=== PATIENT | female | born 1945 | race Hispanic/Latino ===

== ENCOUNTER 2017-12-18 11:23 | Emergency (ER) | payer OTHER, MEDICARE ==
[~2017-12-18] VITALS: Ht 157.5 cm; Wt 68.0 kg
--- NOTE | 2017-12-18 12:10 | ED GI/GU/ABDOMINAL COMPLAINT ---
History of Present Illness General Chief Complaint: General Adult Stated Complaint: VOMITING, ABD PAIN, LEFT ARM PAIN Source: patient Exam Limitations: no limitations Vital Signs & Intake/Output Vital Signs & Intake/Output Vital Signs Date Time Temp Pulse Resp B/P B/P Pulse O2 O2 Flow FiO2 Mean Ox Delivery Rate 12/18 1658 98.3 99 18 101/62 99 Room Air 12/18 1331 98.6 63 18 117/66 97 Room Air Room Air 12/18 1132 98.1 78 18 137/90 97 Room Air Allergies Coded Allergies: MDX - Acetaminophen (From PERCOCET) (Severe, SWELLING 06/15/13) MDX - Morphine (MORPHINE) (Severe, SWELLING 06/15/13) MDX - Oxycodone (From PERCOCET) (Severe, SWELLING 06/15/13) Reconcile Medications Hyoscyamine (Levsin) 0.125 MG TABLET 1-2 TAB PO Q6P PRN ABDOMINAL CRAMPS Ranitidine HCl (Zantac) 300 MG TABLET 1 TAB PO QPM stomach acid Triage Note: PT COMPLAINS OF DIZZINESS THAT HAS BEEN CONSTANT SINCE YESTERDAY, N/V TODAY, UPPER ABD PAIN AND L SHOULDER PAIN. DENIES BACK PAIN/SOB/CP. BP L ARM 125/79 R ARM Triage Nurses Notes Reviewed? yes ? n Is pt currently ? No HPI: Patient presents for evaluation of a severe stabbing abdominal pain located in the epigastric region that began suddenly last night. Patient was also feeling lightheaded and nauseous and short of breath. Patient vomited once this morning , nonbloody. Currently the patient denies abdominal pain but still feels nauseous and lightheaded (not vertigo). The patient denies any associated chest pain, diarrhea, headache, visual disturbances or tinnitus. Patient likewise denies fever or cold symptoms. Past History Travel History Traveled to [place] past 21 day No Medical History Any Pertinent Medical History? 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 No Review of Systems Review of Systems Constitutional: Reports: no symptoms. EENTM: Reports: no symptoms. Respiratory: Reports: no symptoms. Cardiovascular: Reports: no symptoms. GI: Reports: see HPI. Genitourinary: Reports: no symptoms. Musculoskeletal: Reports: no symptoms. Skin: Reports: no symptoms. Neurological/Psychological: Reports: no symptoms. Hematologic/Endocrine: Reports: no symptoms. Immunologic/Allergic: Reports: no symptoms. All Other Systems: Reviewed and Negative Physical Exam Physical Exam Gastrointestinal: see below Comments: Gen.: Well-nourished, well-developed, no acute respiratory distress. Head: Normocephalic, atraumatic. Eyes: Normal inspection bilaterally Ears: Normal inspection bilaterally Nose: Normal inspection Throat/mouth : Moist mucosa Neck: Supple, full range of motion, no goiter Heart: Regular rate and rhythm, no murmurs rubs or gallops Lungs: Clear to auscultation bilaterally with normal air entry Chest: Nontender Back: Normal range of motion Abdomen: Soft, nontender, nondistended, normal bowel sounds Extremities: Normal range of motion grossly, equal radial pulses, no cyanosis clubbing or edema Neurologic: Cranial nerves grossly intact, speech is clear Skin: warm and dry Psychiatric: Calm, cooperative, no apparent delusions or hallucinations Core Measures ACS in differential dx? No Sepsis Present: No Sepsis Focused Exam Completed? No Progress Differential Diagnosis: acid reflux, pancreatitis, biliary disease, peptic ulcer disease, bowel instruction, diverticulitis, coronary artery disease/MS, coronary artery disease Plan of Care: Orders Procedure Date/time Status MISTAKE 12/18 1215 Active URINALYSIS 12/18 1210 Complete LIPASE 12/18 1210 Complete COMPREHENSIVE METABOLIC PANEL 12/18 1210 Complete CBC WITHOUT DIFFERENTIAL 12/18 1210 Complete EKG 12/18 1124 Active Laboratory Tests 12/18/17 1315: CBC w Diff NO MAN DIFF REQ, RBC 3.92 L, MCV 97.4, MCH 33.3 H, MCHC 34.2, RDW 14.8 H, MPV 9.5, Gran % 49.8, Lymphocytes % 32.5, Monocytes % 15.0 H, Eosinophils % 2.2, Basophils % 0.5, Absolute Granulocytes 1.6, Absolute Lymphocytes 1.0 L, Absolute Monocytes 0.5, Absolute Eosinophils 0.1, Absolute Basophils 0 12/18/17 1250: Urine Color YEL, Urine Clarity CLEAR, Urine pH 7.5, Ur Specific [place] 1.010, Urine Protein NEG, Urine Ketones NEG, Urine Nitrite NEG, Urine Bilirubin NEG, Urine Urobilinogen 0.2, Ur Leukocyte Esterase TRACE H, Ur Microscopic SEDIMENT EXAMINED, Urine RBC RARE, Urine WBC RARE, Ur Epithelial Cells FEW, Urine Hemoglobin TRACE-INTACT, Urine Glucose NEG 12/18/17 1241: Anion Gap 6, Estimated GFR > 60, BUN/Creatinine Ratio 24.3, Glucose 103 H, Calcium 9.2, Total Bilirubin 1.4 H, AST 63 H, ALT 26, Alkaline Phosphatase 117 , Total Protein 7.7, Albumin 3.7, Globulin 4.0, Albumin/Globulin Ratio 0.9 L, Lipase 193 Diagnostic Imaging: Discussed w/RAD: CT Scan. Radiology Impression: PATIENT: GINETTE MADRIGAL PRESENT AGE: 72 PATIENT ACCOUNT NO: [id number] : 47 LOCATION: [facility] ORDERING PHYSICIAN: Duncan Julien MD SERVICE DATE: 12/18/17 EXAM TYPE: CAT - CT ABD & PELVIS W/O IV CONTRAS EXAMINATION: CT ABDOMEN AND PELVIS WITHOUT CONTRAST CLINICAL INFORMATION: Diffuse abdominal tenderness. COMPARISON: 2012 and 05/25/2013. TECHNIQUE: Multidetector volumetric imaging was performed from the superior aspect of the liver through the pubic symphysis. Sagittal and coronal reformatted images were obtained on the technologist's workstation. DLP: 322 mGy-cm FINDINGS: LUNG BASES: Mosaic attenuation of the visualized lower lobes, suggestive of air trapping phenomenon of small airways disease. No basilar consolidation or pleural effusion. LIVER, GALLBLADDER, AND BILIARY TREE: The liver is relatively small, its contour smooth, and no masses are seen. There is an old 0.3 cm focus of calcification within the right hepatic lobe. The gallbladder is normal; no radiopaque gallstones, wall thickening or pericholecystic inflammatory changes. No intrahepatic or extrahepatic bile duct dilatation. PANCREAS: Unremarkable. SPLEEN: Unremarkable. ADRENAL GLANDS: Unremarkable. KIDNEYS AND URETERS: Kidneys are normal in size. Parapelvic cyst of the lower pole the right kidney measures up to 6.9 cm maximum dimension. There is a 0.3 cm calyceal stone of the right upper pole. Within the lateral interpolar region of the left kidney, there are 0.3 cm and 0.6 cm calyceal stones. No hydroureteronephrosis or perinephric edema. BLADDER: Unremarkable. BOWEL AND PERITONEUM: Bowel loops are normal in caliber. No evidence of acute inflammation or obstruction along the gastrointestinal tract. Mild diverticulosis of sigmoid colon without diverticulitis. The appendix is normal. No ascites or pneumoperitoneum. ABDOMINAL WALL: Unremarkable. LYMPH NODES: No pathologic sized lymph nodes in the abdomen or pelvis. No inguinal lymphadenopathy. VASCULAR: Again noted are chronically dilated, tortuous veins in the anterior right perinephric space and coursing anterior to the inferior vena cava. These were more clearly seen on the contrast-enhanced exam of 2012. Abdominal aorta is normal in caliber. 1.2 cm rim calcified splenic artery aneurysm is unchanged. PELVIC: Status post hysterectomy. No pelvic mass or free fluid. Multiple phleboliths are present within the pelvis. MUSCULOSKELETAL: There are 6 nonrib-bearing lumbar vertebra. Chronic dextroscoliosis of the lumbar spine and chondrocalcinosis of degenerated intervertebral discs. Minimal retrolisthesis at L1-L2. Spinal fusion cages are observed at the L5-L6 level. No aggressive osseous lesions. IMPRESSION: - Bilateral nephrolithiasis without hydroureteronephrosis. - Mild diverticulosis of the sigmoid colon without diverticulitis. - Stable 1.2 cm aneurysm of the splenic artery. - Benign parapelvic cyst of the right kidney measures up to 6.9 cm maximum dimension. DICTATED BY: Zeferino Hung MD DATE/TIME DICTATED:12/18/171613 OUTSIDE PLANT FIELD ENGINEER:NONI DATE/TIME TRANSCRIBED:12/18/171613 CONFIDENTIAL, DO NOT COPY WITHOUT APPROPRIATE AUTHORIZATION. <Electronically signed in Other Vendor System> SIGNED BY: Zeferino Hung MD 12/18/17 9338 Initial ED EKG: NSR, rate (77) Prior EKG: unchanged Comments: 12/18/2017 5:02:26 PM I have updated Ginette and family on test results. Cause of her pain is unclear at this point so I have asked that she follow up with her primary care physician for reevaluation. Departure Departure Disposition: HOME OR SELF CARE Condition: Stable Clinical Impression Primary Impression: Nonspecific abdominal pain Secondary Impressions: Renal cyst, right, Splenic artery aneurysm Referrals: Nayla VALLE,Marjorie Clements (PCP/Family) Additional Instructions: The cause of your abdominal pain is unclear at this point. Please follow-up with your primary care physician within the next 24-48 hours for reevaluation. Levsin as needed for abdominal pain. Zantac as prescribed control stomach acid. Return if any concerns or sudden worsening. Please note that there might be incidental findings in your evaluation that are unrelated to the current emergency department visit. Please notify your primary care doctor about this emergency department visit in order to obtain and review all of the testing performed so that these incidental findings can be monitored as needed. If you had an x-ray performed, please understand that some fractures or other findings may not be seen on the initial set of x-rays. If your symptoms persist you might need a repeat set of x-rays to check for such a fracture. If you had a laceration evaluated, please understand that foreign bodies such as glass or wood may not be visible to the naked eye or on plain x-rays. If the wound becomes red, swollen, increasingly more painful or if there is any drainage from the wound, please have it reevaluated by a physician for the possibility of a retained foreign body. If you're unable to follow up as outlined in the discharge instructions please return to the emergency department. Thank you for choosing the [facility] Emergency Department for your care. It was a pleasure to serve you today. Duncan Julien M.D. [facility] Departure Forms: Customer Survey General Discharge Information Prescriptions: Current Visit Scripts Hyoscyamine (Levsin) 1-2 TAB PO Q6P PRN ABDOMINAL CRAMPS #20 TAB Ranitidine HCl (Zantac) 1 TAB PO QPM #20 TAB
[2017-12-18 13:27] LABS: ABSOLUTE BASOPHIL COUNT 0 /CUMM (0.0-0.2); ABSOLUTE EOSINOPHIL COUNT 0.1 /CUMM (0.0-0.7); ABSOLUTE GRANULOCYTE CT 1.6 /CUMM (1.4-6.5); ABSOLUTE MONOCYTE COUNT 0.5 /CUMM (0.10-0.60); BASOPHIL % 0.5 % (0.0-2.0); EOSINOPHIL % 2.2 % (0-5); GRANULOCYTE % 49.8 % (42.2-75.2); HEMATOCRIT 38.2 % (37-47); MEAN CORPUSCULAR HGB 33.3 PG (27.0-31.0); MEAN CORPUSCULAR HGB CONC 34.2 G/DL (33.0-37.0); MEAN CORPUSCULAR VOLUME 97.4 FL (81.0-99.0); MEAN PLATELET VOLUME 9.5 FL (7.4-10.4); PLATELET COUNT 118 /CUMM (130-400); RBC DISTRIBUTION WIDTH 14.8 % (11.5-14.5); RED BLOOD CELL CT 3.92 /CUMM (4.20-5.40); WHITE BLOOD CELL COUNT 3.1 /CUMM (4.8-10.8)
--- NOTE | 2017-12-18 16:35 | CT SCAN REPORT ---
EXAMINATION: CT ABDOMEN AND PELVIS WITHOUT CONTRAST CLINICAL INFORMATION: Diffuse abdominal tenderness. COMPARISON: 09/23/2012 and 05/25/2013. TECHNIQUE: Multidetector volumetric imaging was performed from the superior aspect of the liver through the pubic symphysis. Sagittal and coronal reformatted images were obtained on the technologist's workstation. DLP: 322 mGy-cm FINDINGS: LUNG BASES: Mosaic attenuation of the visualized lower lobes, suggestive of air trapping phenomenon of small airways disease. No basilar consolidation or pleural effusion. LIVER, GALLBLADDER, AND BILIARY TREE: The liver is relatively small, its contour smooth, and no masses are seen. There is an old 0.3 cm focus of calcification within the right hepatic lobe. The gallbladder is normal; no radiopaque gallstones, wall thickening or pericholecystic inflammatory changes. No intrahepatic or extrahepatic bile duct dilatation. PANCREAS: Unremarkable. SPLEEN: Unremarkable. ADRENAL GLANDS: Unremarkable. KIDNEYS AND URETERS: Kidneys are normal in size. Parapelvic cyst of the lower pole the right kidney measures up to 6.9 cm maximum dimension. There is a 0.3 cm calyceal stone of the right upper pole. Within the lateral interpolar region of the left kidney, there are 0.3 cm and 0.6 cm calyceal stones. No hydroureteronephrosis or perinephric edema. BLADDER: Unremarkable. BOWEL AND PERITONEUM: Bowel loops are normal in caliber. No evidence of acute inflammation or obstruction along the gastrointestinal tract. Mild diverticulosis of sigmoid colon without diverticulitis. The appendix is normal. No ascites or pneumoperitoneum. ABDOMINAL WALL: Unremarkable. LYMPH NODES: No pathologic sized lymph nodes in the abdomen or pelvis. No inguinal lymphadenopathy. VASCULAR: Again noted are chronically dilated, tortuous veins in the anterior right perinephric space and coursing anterior to the inferior vena cava. These were more clearly seen on the contrast-enhanced exam of 09/23/2012. Abdominal aorta is normal in caliber. 1.2 cm rim calcified splenic artery aneurysm is unchanged. PELVIC: Status post hysterectomy. No pelvic mass or free fluid. Multiple phleboliths are present within the pelvis. MUSCULOSKELETAL: There are 6 nonrib-bearing lumbar vertebra. Chronic dextroscoliosis of the lumbar spine and chondrocalcinosis of degenerated intervertebral discs. Minimal retrolisthesis at L1-L2. Spinal fusion cages are observed at the L5-L6 level. No aggressive osseous lesions. IMPRESSION: - Bilateral nephrolithiasis without hydroureteronephrosis. - Mild diverticulosis of the sigmoid colon without diverticulitis. - Stable 1.2 cm aneurysm of the splenic artery. - Benign parapelvic cyst of the right kidney measures up to 6.9 cm maximum dimension.
[2017-12-18 16:58] VITALS: BP 101/62
[2017-12-18] MEDS ORDERED: LEVSIN0.125 M1 PO (17:05)
[2017-12-18] MEDS ORDERED: ZANTAC300 MG PO (17:05)
== END 2017-12-18 17:29 ==
LOC: ERH 11:23
PROVIDERS: Emergency Medicine
DX: N28.1 Cyst of kidney, acquired (principal); I72.8 Aneurysm of other specified arteries; R10.13 Epigastric pain; I10 Essential (primary) hypertension
CPT/HCPCS: 74176; 81001; 93005; 93010; 96360; J7040